=== PATIENT | male | born 1960 | race Caucasian/White ===

== ENCOUNTER 2023-07-05 21:20 | Emergency (ER) | payer BC ==
--- NOTE | 2023-07-05 21:22 | ERPHSYRPT ---
- History of Present Illness Time Seen by Provider: 07/05/23 21:22 Source: patient, family (Spouse provided independent) Exam Limitations: no limitations ( additional history on this patient) Physician History: This patient is an overweight 62-year-old white male patient of nurse practitioner Jovanny who presents with history of right anterior thigh burning that has been intermittent for 2 months. Patient had mentioned his symptoms to his sister and she told him to come directly to the emergency room to be evaluated for possible blood clot in his leg. Patient has had no trauma to that leg. Patient has no history of prior DVTs or any bleeding or clotting disorde rs. He has no complaints of fever or infection or redness to that right leg. There is been no swelling to his right leg. Patient has no right posterior thigh or right calf pain. Patient has no chest pain. Patient has no cough. Patient has no shortness of breath. Patient is not on any anticoagulation therapy. Occurred: other (Present intermittently for 2 months) Quality: intermittent, burning Severity of Pain-Max: mild Severity of Pain-Current: mild Lower Extremities Pain: thigh: right (Anteriorly) Modifying Factors: Improves With: movement Associated Symptoms: none Allergies/Adverse Reactions: No Known Drug Allergies Allergy (Verified 07/05/23 21:30) Home Medications: Ergocalciferol (Vitamin D2) [Vitamin D2] 1 tab PO WEEKLY 07/05/23 [History] Escitalopram Oxalate [Lexapro] 5 mg PO HS 07/05/23 [History] Semaglutide [Ozempic] 1 mg SQ WEEKLY 07/05/23 [History] Travel Risk - International Travel Have you traveled outside of the country in past 3 weeks: No - Coronavirus Screening Are you exhibiting any of the following symptoms?: No Close contact with a COVID-19 positive Pt in past 14-21 Days: No - Review of Systems Constitutional: No Symptoms Eyes: No Symptoms Ears, Nose, & Throat: No Symptoms Respiratory: No Symptoms Cardiac: No Symptoms Abdominal/Gastrointestinal: No Symptoms Genitourinary Symptoms: No Symptoms Musculoskeletal: Other (Right anterior thigh burning) Skin: No Symptoms Neurological: No Symptoms Psychological: No Symptoms Endocrine: No Symptoms Hematologic/Lymphatic: No Symptoms Immunological/Allergic: No Symptoms All Other Systems: Reviewed and Negative - Past Medical History Pertinent Past Medical History: Yes - Past Surgical History Past Surgical History: Yes - Nursing Vital Signs Nursing Vital Signs: Initial Vital Signs Temperature 97.6 F 07/05/23 21:31 Pulse Rate 70 07/05/23 21:31 Respiratory Rate 18 07/05/23 21:31 Blood Pressure 111/60 07/05/23 21:31 O2 Sat by Pulse Oximetry 94 L 07/05/23 21:31 Pain Scale Pain Intensity 8 - Physical Exam General Appearance: no apparent distress, alert, anxiety, obese Eyes, Ears, Nose, Throat Exam: normal ENT inspection, moist mucous membranes Neck Exam: normal inspection, non-tender, supple, full range of motion Cardiovascular/Respiratory Exam: chest non-tender, no respiratory distress Gastrointestinal/Abdominal Exam: non-tender Back Exam: normal inspection, normal range of motion, No CVA tenderness, No vertebral tenderness Hips Exam: bilateral: non-tender, normal inspection, normal range of motion, no evidence of injury Legs Exam: right leg: pain (Right anterior thigh burning), left leg: non-tender, bilateral leg: normal inspection, normal range of motion, no evidence of injury Knees Exam: bilateral knee: non-tender, normal inspection, normal range of motion, no evidence of injury Ankle Exam: bilateral ankle: non-tender, normal inspection, normal range of motion, no evidence of injury Foot Exam: bilateral foot: non-tender, normal inspection, normal range of motion, no evidence of injury, other (Strong bilateral pedal pulses) Neuro/Tendon Exam: normal sensation, normal motor functions, normal tendon funct ions, responds to pain, no evidence tendon injury Mental Status Exam: alert, oriented x 3, cooperative Skin Exam: normal color, warm, dry SpO2 Interpretation: normal O2 Delivery: Room Air - Course Nursing assessment & vital signs reviewed: Yes Ordered Tests: Active Orders 24 hr Category Date Time Status D-DIMER QUANTITATIVE Stat Lab 07/05/23 22:00 Completed Lab/Rad Data: Laboratory Results 07/05/23 Range/Units 22:00 D-Dimer 0.42 (0.0-0.50) mg/L - Progress Progress: unchanged Progress Note: 07/05/23 21:34 This patient's medical history is 1 of low complexity. The level complexity in the work-up performed is based on review of the patient's past medical history, review of the patient's medication list, review of the patient's drug allergy list, history of present illness and physical findings on examination. This patient work-up includes a D-dimer screening test. If this test is positive, then I will contact ultrasound to come in and perform a right lower extremity venous Doppler to evaluate for DVT. If it is negative, the patient will be discharged to home with instruction to follow-up in the patient's primary care provider's office on 07/08/2023 to make arrangements for further evaluation management. 07/05/23 22:33 The D-dimer in this patient is normal. The patient is not having classic signs or symptoms of DVT. Patient does not require an emergent venous Doppler of his right lower extremity. He will be discharged home with instructions to follow- up with his primary care provider on 07/08/2020 3 in the morning to make an appointment for further evaluation management. Counseled pt/family regarding: lab results, diagnosis, need for follow-up Medical Desision Making - Independent Historian Additional History obtained from: Spouse - Diagnostic Testing Diagnostic test were ordered, analyzed, and reviewed by me: Yes - Risk of complications Low Risk: Low risk of morbidity from additional dx testing or treatment - Departure Departure Disposition: Home Clinical Impression: Burning sensation of lower extremity Condition: Stable Critical Care Time: No Referrals: CHIQUI HSU NP [Primary Care Provider] - Follow up/PCP as directed Additional Instructions: Continue your medications as prescribed. Call your primary care provider on 07/08/2020 3 in the morning to make arrangements for follow-up appointment and for further evaluation and management.
[2023-07-05 21:33] VITALS: TEMP 97.6
[2023-07-05 22:24] VITALS: BP 106/64; PULSE 60; RESP 16; O2SAT 97
== END 2023-07-05 22:43 | disposition home or self-care (01) ==
LOC: ED 21:20
DX: M79.652 Pain in left thigh (principal); R20.2 Paresthesia of skin; Z79.85 Long-term (current) use of injectable non-insulin antidiabetic drugs; Z79.899 Other long term (current) drug therapy
CPT/HCPCS: 36415; 85379; 99282

== ENCOUNTER 2023-08-28 13:40 | Day surgery (SDC) | payer BC ==
[2023-08-28] MEDS ORDERED: LIDOCAINE HCL 2% 100 MG/5 ML IJ ONE (13:41)
[2023-08-28] MEDS ORDERED: Lactated Ringers 1,000 ML IV ONE (15:38)
--- NOTE | 2023-08-28 16:43 | XRAY ---
Indication: Right L4-S1 MBB. Intraoperative fluoroscopy provided for 15 seconds. Single digital spot image submitted for interpretation demonstrates posterior needle tips projecting over the expected right L4-S1 nerve roots. Correlate with intraoperative findings/report.
--- NOTE | 2023-08-28 16:48 | XRAY ---
15 seconds of fluoroscopy was used in surgery for a right L4-S1 MBB.
== END 2023-08-28 16:15 | disposition home or self-care (01) ==
LOC: SDC-PAIN 13:40
PROVIDERS: ATTEND Psychiatry & Neurology Pain Medicine
DX: M47.816 Spondylosis without myelopathy or radiculopathy, lumbar region (principal); Z79.899 Other long term (current) drug therapy
CPT/HCPCS: 64493; 64494; 72020; 77002

== ENCOUNTER 2023-10-16 09:59 | Day surgery (SDC) | payer BC ==
[2023-10-16] MEDS ORDERED: LIDOCAINE HCL 2% 100 MG/5 ML IJ ONE (10:00)
[2023-10-16] MEDS ORDERED: BUPIVACAINE 0.5% VIAL IJ ONE (10:00)
[2023-10-16] MEDS ORDERED: DIPRIVAN 200 MG/20 ML IV ONE (11:22)
--- NOTE | 2023-10-16 12:13 | XRAY ---
Indication: Bilateral L4-S1 MBB. Intraoperative fluoroscopy provided for 20 seconds. Single digital spot image submitted for interpretation demonstrates posterior needle tips projecting over expected left and right L4-S1 nerve roots. Correlate with intraoperative findings/report.
--- NOTE | 2023-10-16 12:21 | XRAY ---
20 seconds of fluoroscopy was used in surgery for a bilateral L4-S1 MBB.
[2023-10-16] MEDS ORDERED: Lactated Ringers 1,000 ML IV ONE (16:31)
== END 2023-10-16 11:53 | disposition home or self-care (01) ==
LOC: SDC-PAIN 09:59
PROVIDERS: ATTEND Psychiatry & Neurology Pain Medicine
DX: M47.816 Spondylosis without myelopathy or radiculopathy, lumbar region (principal); Z79.899 Other long term (current) drug therapy
CPT/HCPCS: 64635; 64636; 72020; 77002; J2704

== ENCOUNTER 2023-11-20 10:35 | Day surgery (SDC) | payer BC ==
[2023-11-20] MEDS ORDERED: BUPIVACAINE 0.5% VIAL IJ ONE (10:36)
[2023-11-20] MEDS ORDERED: DIPRIVAN 200 MG/20 ML IV ONE (13:37)
[2023-11-20] MEDS ORDERED: Lactated Ringers 1,000 ML IV ONE (14:23)
--- NOTE | 2023-11-20 14:59 | XRAY ---
Indication: Left L4-S1 MBB. Intraoperative fluoroscopy provided for 16 seconds. Single digital spot image submitted for interpretation demonstrates posterior needle tips projecting over the expect left L4-S1 nerve roots. Correlate with intraoperative findings/report.
--- NOTE | 2023-11-20 15:07 | XRAY ---
16 seconds of fluoroscopy was used in surgery for a left L4-S1 MBB.
== END 2023-11-20 14:10 | disposition home or self-care (01) ==
LOC: SDC-PAIN 10:35
PROVIDERS: ATTEND Psychiatry & Neurology Pain Medicine
DX: M47.816 Spondylosis without myelopathy or radiculopathy, lumbar region (principal)
CPT/HCPCS: 64493; 64494; 72020; 77002; J2704